=== PATIENT | male | born 2005 | race Two or more races ===

== ENCOUNTER 2024-04-24 14:49 | Emergency (ER) | payer SELFPAY ==
[2024-04-24 14:49] VITALS: BMI 24.3
[2024-04-24 14:57] VITALS: BP 123/74; PULSE 109; RESP 18; TEMP 36.8; O2SAT 98
--- NOTE | 2024-04-24 14:57 | XR_ITS ---
Examination: CT brain head without contrast. 2-D sagittal coronal reconstructions Date and time of exam:April 24, 2024 1541 hrs. Comparison December 27, 2020 Indications: Sports injury to the back of the head today with head pain dizziness CTDI: vol (mGy):51.5 DLP: (mGycm):1105 Technique: Multiple CT axial sections of the brain have been obtained, 5 mm slice thickness. Contrast has not been administered. 2-D sagittal, coronal reconstructions have been obtained Low dose protocols were performed. One or more of the following dose reduction techniques were used; automated exposure control, adjustment of the mA and/or KV according to patient size, use of iterative reconstruction technique. Findings: No significant ventricular enlargement. Intra-axial or extra-axial hemorrhage density is not seen. No mass effect or midline shift Basal cisterns are not remarkable. Fourth ventricle is midline. Cranial vault intact. Impression: Negative for acute hemorrhage, mass effect or midline shift
--- NOTE | 2024-04-24 14:58 | PD.EDRME ---
Rapid Medical Screening Exam RME Arrival date/time: 04/24/24 14:49 18-year-old male presents emergency department complains of headache nausea and vomiting Chief Complaint: Head Injury Time Seen by Provider: 04/24/24 14:57
[2024-04-24] MEDS: ACETAMINOPHEN 500 MG TABLET 1000 MG PO (15:01)
[2024-04-24] MEDS: ONDANSETRON ODT 4 MG TABRAP PO (15:01)
--- NOTE | 2024-04-24 16:46 | EDNOTE_ITS ---
ED Head Injury RME/HPI General Chief complaint: Head Injury Stated complaint: HIT HEAD AT FOOTBALL Time Seen by Provider: 04/24/24 14:57 Arrival date/time: 04/24/24 14:49 18-year-old male presents to emergency department today stating he had a head injury while playing football today patient ports headache nausea and vomiting Limitations: no limitations RME / HPI RME / HPI Narrative: 04/24/24 14:49 18-year-old male presents emergency department complains of headache nausea and vomiting Related Data Previous Rx's ?Medication ?Instructions ?Recorded ibuprofen 400 mg tablet 400 mg PO Q6H #30 tabs 12/27/20 ondansetron HCl 4 mg tablet 4 mg PO Q6H PRN nausea and 12/27/20 (Zofran) vomiting #30 tabs ibuprofen 600 mg tablet 600 mg PO Q6H #30 tabs 04/24/24 Allergies Allergy/AdvReac Type Severity Reaction Status Date / Time No Known Allergies Allergy Verified 04/24/24 14:52 Review of Systems Review of Systems Systems Reviewed: All systems reviewed, normal except as documented Constitutional Constitutional: Reports system reviewed and no additional complaints, except as documented, Denies fever(s), Reports headache(s) and Denies weakness Eyes Eyes: Reports system reviewed and no additional complaints, except as documented and Denies blurry vision ENT Ears, Nose, Mouth, and Throat: Reports system reviewed and no additional complaints, except as documented, Denies abnormal hearing, Reports headache(s), Denies nasal congestion and Denies nasal discharge Cardiovascular Cardiovascular: Reports system reviewed and no additional complaints, except as documented, Denies chest pain and Denies dyspnea Respiratory Respiratory: Reports system reviewed and no additional complaints, except as documented, Denies chest congestion, Denies cough and Denies dyspnea Gastrointestinal Gastrointestinal: Reports system reviewed and no additional complaints, except as documented and Denies abdominal pain Musculoskeletal Musculoskeletal: Denies abnormal gait Integumentary/Breasts Skin/Breast: Reports system reviewed and no additional complaints, except as documented and Denies rash Neurologic Neurologic: Reports system reviewed and no additional complaints, except as documented, Reports as per HPI, Denies abnormal gait, Denies abnormal hearing, Denies behavioral changes, Denies localized weakness, Reports headache(s) and Denies weakness Psychiatric Psychiatric: Denies behavioral changes Past Medical History Social History SMOKING STATUS: Never smoker ED Exam General Limitations: Present no limitations General appearance: Present alert and in no apparent distress Head Head exam: Present atraumatic, normocephalic and normal inspection Eye Eye exam: Present normal appearance, PERRL and EOMI; Absent conjunctival injection ENT ENT exam: Present normal exam, normal oropharynx and mucous membranes moist Neck Neck exam: Present normal inspection, full ROM and trachea midline; Absent tenderness Chest Chest inspection: Present normal inspection and symmetric chest wall rise; Absent tenderness Respiratory Respiratory exam: Present normal lung sounds bilaterally; Absent respiratory distress Cardiovascular Cardiovascular exam: Present regular rate, normal rhythm and normal heart sounds Abdominal Exam Abdominal exam: Present soft and normal bowel sounds Extremities Exam Extremities exam: Present normal inspection and full ROM Back Exam Back exam: Present normal inspection and full ROM Neurological Exam Neurological exam: Present alert, oriented X3 and CN II-XII intact Psychiatric Psychiatric exam: Present normal affect and normal mood Skin Skin exam: Present warm, dry, intact and normal color Course Quality Measures none Orders Category Date Time Status CT head/brain wo con Stat Exams 04/24/24 14:57 Completed Acetaminophen Tab [Tylenol ES Tab] Med 04/24/24 14:57 Discontinued 1,000 mg PO X1 ONE Ondansetron Odt [Zofran Odt] Med 04/24/24 14:57 Discontinued 4 mg PO X1 ONE Vital Signs Vital signs: Vital Signs Temperature 98.2 F 04/24/24 14:57 Pulse Rate 109 H 04/24/24 14:57 Respiratory Rate 18 04/24/24 14:57 Blood Pressure 123/74 04/24/24 14:57 Pulse Oximetry (%) 98 04/24/24 14:57 Oxygen Delivery Method Room Air 04/24/24 14:57 O2 saturation 98% room air within normal limits Head Injury MDM Narrative MDM Narrative:: 18-year-old male presents to emergency department today stating he had a head injury while playing football today patient ports headache nausea and vomiting On exam patient well-appearing patient does not appear ill or toxic patient's not appear in acute distress Imaging obtained Patient discharged home in no distress to follow-up with primary care doctor in the next 24 to 48 hours and for any worsening symptoms to return to the ER immediately Patient data External records reviewed:: [facility] previous records Clinical information provided by:: patient Social determinants that could affect healthcare access:: none Patient has the following chronic illnesses:: None How is presenting disease/condition affected by chronic disease/condition?: no chronic disease Evaluation data The following diagnostics were reviewed and interpreted by me:: radiology exam(s) Lab and/or radiology exams considered but not ordered:: Radiology obtain Interpretation Summary: Reviewed by me Medications / Prescriptions Medications or Prescriptions considered but not ordered:: Given Medication administrations:: Medication Administration History Discontinued Medications Acetaminophen (Acetaminophen 500 Mg Tablet) 1,000 mg PO X1 ONE Stop: 04/24/24 14:58 Last Admin: 04/24/24 15:01 Dose: 1,000 mg Documented By: DENICE Ondansetron HCl (Ondansetron Odt 4 Mg Tabrap) 4 mg PO X1 ONE; Protocol Stop: 04/24/24 14:58 Last Admin: 04/24/24 15:01 Dose: 4 mg Documented By: DENICE Given Consultations Consultation(s) initiated? (list below): No Diagnosis Differential diagnosis head injury: concussion without loss of consciousness and postconcussion syndrome Most likely diagnosis given after review of the tests above:: Concussion Admission Indicated Admission indicated?: not indicated Admission Request Was there a request for admission?: No Disposition Plan Disposition Plan: Discharge Discharge Attestation Discharge Attestation: The patient and all family members were given an opportunity to ask questions and understood the discharge instructions. Discharge instructions specifically effects, indications for sooner follow up or return to the emergency department, and the expected course of current diagnosis. Patient condition: Stable Discharge Plan Plan Patient Disposition: HOME (Self Care) Disposition Comment: stable Prescriptions/Referrals Prescriptions/Med Rec: New ibuprofen 600 mg tablet 600 mg PO Q6H Qty: 30 0RF No Action ibuprofen 400 mg tablet 400 mg PO Q6H Qty: 30 0RF ondansetron HCl [Zofran] 4 mg tablet 4 mg PO Q6H PRN (Reason: nausea and vomiting) Qty: 30 0RF Problem List Clinical Impression: Closed head injury Patient/Caregiver Discharge Instructions Education Materials: After a Concussion Additional Instructions: Please follow up with your primary care doctor in the next 24-48hrs for any worsening symptoms return here immediately Print Language: Albanian Stand Alone Forms: [employer] Award Info., Work/School Release, Patient Portal Info Letter PA/LAUREN Supervising Physician PA/LAUREN Supervising Physician: dr martinez
[2024-04-24 17:17] VITALS: PULSE 78; RESP 16; O2SAT 99
== END 2024-04-24 17:18 | disposition home or self-care (01) ==
PROVIDERS: Emergency Provider Emergency Medicine
DX: S09.90XA Unspecified injury of head, initial encounter (principal); X58.XXXA Exposure to other specified factors, initial encounter; Y93.61 Activity, american tackle football
CPT/HCPCS: 70450; 99284; Q0162; A9270